=== PATIENT | male | born 1980 | race Caucasian/White ===

== ENCOUNTER 2016-08-03 17:52 | Emergency (ER) | payer OTHER ==
[2016-08-03] MEDS ORDERED: NS 0.9% 1000 ML* 1,000 ML IV ONE (18:17)
[2016-08-03] MEDS ORDERED: Ondansetron INJ* 2 MG/ML VIAL IV ONE (18:17)
[2016-08-03] MEDS ORDERED: HYDROmorphone* 1 MG/ML 1 ML SYR IV ONE ×3 (18:17→21:12)
[2016-08-03] MEDS ORDERED: Ketorolac INJ* 30 MG/ML 1 ML VIAL IV ONE (20:06)
--- NOTE | 2016-08-03 20:45 | RAD ---
Indication: Chest and shoulder injury. 2 views of the chest including dual energy PA views demonstrates no mediastinal shift. Heart is of normal size and configuration. Lung atkinson appear clear. No pneumothorax is noted. Again noted is a fracture of the midshaft right clavicle with overriding of the fracture fragments. IMPRESSION: No active cardiopulmonary disease is noted. Right clavicle fracture.
--- NOTE | 2016-08-03 20:46 | RAD ---
Indication: Right shoulder injury. 3 views of the right shoulder demonstrates fracture of the midshaft of the right clavicle with overriding of the fracture fragments. AC joint and glenohumeral joint are intact. IMPRESSION: Fracture midshaft right clavicle with overriding of the fracture fragments.
[2016-08-03] MEDS: oxyCODONE/Acetamin 5/325 MG* TAB PO ONE ×2 (20:50→20:51)
[2016-08-03] MEDS ORDERED: LORazepam INJ* 2 MG/ML 1 ML VIAL IV PUSH ONE (21:03)
[2016-08-03 21:20] LABS: Hematocrit 50 % (42-52); Mean Corpuscular HGB Conc 34 g/dl (31-36); Mean Corpuscular Hemoglobin 32 pg (27-31); Mean Corpuscular Volume 93 fL (80-94); Mean Platelet Volume 9 um3 (7.4-10.4); Red Blood Count 5.35 10^6/ul (4.0-5.4); Red Cell Distribution Width 13 % (10.5-15); White Blood Count 10.3 10^3/ul (3.5-10.8)
[2016-08-03 21:33] LABS: BUN/Creatinine Ratio 10.1 (8-20); Calcium 10.4 mg/dL (8.6-10.3); EGFR African American 89.5 (>60); EGFR Non-African American 69.6 (>60); Potassium 3.9 mmol/L (3.5-5.0)
[2016-08-03] MEDS ORDERED: Iohexol 300* (CONTRAST) 10 ML SDV IV ONE (21:36)
--- NOTE | 2016-08-03 22:16 | RAD ---
Indication: Right neck pain and clavicle injury. CT of the soft tissues of the neck was performed. Comminuted fracture of the midshaft right clavicle is noted. The great vessels are unremarkable. Localized hematoma is noted adjacent to the clavicle fracture. The sternocleidomastoid and neck demonstrates no evidence of abnormal masses. Submandibular glands are intact. Parotid glands are unremarkable. No evidence of hematoma is noted. The visualized cervical spine is otherwise unremarkable. No disc protrusion is noted. Mucous retention cyst is noted in the right maxillary sinus. IMPRESSION: No evidence of hematoma is noted along the right side of the neck. Mucous retention cyst is noted in the right maxillary sinus.
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
[2016-08-04 06:23] VITALS: BP 145/88
== END 2016-08-03 22:40 | disposition home or self-care (01) ==
LOC: ED 17:52
DX: S42.001A Fracture of unspecified part of right clavicle, initial encounter for closed fracture (principal); V86.59XA Driver of other special all-terrain or other off-road motor vehicle injured in nontraffic accident, initial encounter; Y93.9 Activity, unspecified; Y92.9 Unspecified place or not applicable
CPT/HCPCS: 36415; 70491; 71020; 80048; 85025; 96374; 96375; 99283; A9270-GY; J1170; J1885; J2060; J2405; Q9967

== ENCOUNTER 2016-08-20 08:48 | Day surgery (SDC) | payer OTHER ==
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
[~2016-08-20 08:48] MED LIST: Buffered Lidocaine 0.9% SYRIN* 5 ML/SYR SYRINGE INTRADERM ONE; Famotidine IV* 10 MG/ML 2 ML (20 mg) IV ONE; Midazolam* 1 MG/ML 5 ML VIAL (5 MG) ONE; fentaNYL* 50 MCG/ML 2 ML VIAL (100 MCG VIAL) ONE
[2016-08-20] MEDS ORDERED: Lidocaine 2% PF * 5 ML VIAL ONE (08:51)
[2016-08-20] MEDS ORDERED: Propofol* 10 MG/ML 20 ML BTL IV PUSH ONE (08:51)
[2016-08-20] MEDS ORDERED: Ketorolac INJ* 30 MG/ML 1 ML VIAL ONE (08:51)
[2016-08-20] MEDS ORDERED: Ondansetron INJ* 2 MG/ML VIAL ONE (08:51)
[2016-08-20] MEDS ORDERED: Dexamethasone IV* 4 MG/ML 1 ML (4 MG) ONE (08:51)
[2016-08-20] MEDS ORDERED: DiMENhydriNATE IV* 50 MG/ML VIAL IV PUSH PRN (09:05)
[2016-08-20] MEDS ORDERED: ceFAZolin 2 GM PREMIX(*) 0 GM/0 ML BAG IVPB ONE (09:32)
[2016-08-20] MEDS ORDERED: Buffered Lidocaine 0.9% SYRIN* 5 ML/SYR SYRINGE ONE (09:32)
[2016-08-20] MEDS ORDERED: Famotidine IV* 10 MG/ML 2 ML (20 mg) ONE (09:46)
[2016-08-20] MEDS ORDERED: Clindamycin 900 MG IVPREMIX(* 900 MG/50 ML SDV IV ONE (09:55)
[2016-08-20] MEDS ORDERED: Bupivacaine 0.5% W/EPI SDV* 30 ML VIAL ONE (10:10)
[2016-08-20] MEDS ORDERED: HYDROmorphone* 1 MG/ML 1 ML SYR ONE ×2 (10:37→12:11)
[2016-08-20] MEDS: HYDROmorphone* 1 MG/ML 1 ML SYR IV PRN ×3 (12:14→12:53)
[2016-08-20] MEDS ORDERED: oxyCODONE/Acetamin 5/325 MG* TAB ONE (12:54)
[2016-08-20] MEDS: oxyCODONE/Acetamin 5/325 MG* TAB PO PRN ×2 (12:57→13:24)
--- NOTE | 2016-08-20 13:24 | RAD ---
Indication: Right clavicle fracture status post internal fixation. 2 views of the right clavicle demonstrates internal fixation with a plate and screws of the clavicle. The fracture fragments appear in near anatomic alignment. IMPRESSION: INTERNAL FIXATION FRACTURE MID SHAFT CLAVICLE WITH FRACTURE FRAGMENTS IN NEAR ANATOMIC ALIGNMENT.
[2016-08-20 13:33] VITALS: BP 120/71
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
== END 2016-08-20 13:51 | disposition home or self-care (01) ==
LOC: OREAST 08:48
PROVIDERS: ATTEND Orthopaedic Surgery
PROC: 0PS904Z Reposition Right Clavicle with Internal Fixation Device, Open Approach (ICD-10-PCS; principal; 2016-08-20 10:00)
DX: S42.021A Displaced fracture of shaft of right clavicle, initial encounter for closed fracture (principal); V89.2XXA Person injured in unspecified motor-vehicle accident, traffic, initial encounter; Y92.9 Unspecified place or not applicable; F32.9 Major depressive disorder, single episode, unspecified; F41.9 Anxiety disorder, unspecified; M54.9 Dorsalgia, unspecified; G89.29 Other chronic pain; F17.200 Nicotine dependence, unspecified, uncomplicated
CPT/HCPCS: A9270-GY; J0690; J1100; J1170; J1885; J2250; J2405; J2704; J3010

== ENCOUNTER 2016-09-07 13:01 | Emergency (ER) | payer OTHER ==
[2016-09-07] MEDS ORDERED: Ketorolac INJ* 30 MG/ML 1 ML VIAL IV ONE (14:32)
[2016-09-07] MEDS ORDERED: NS 0.9% 1000 ML* 1,000 ML IV ONE (14:32)
[2016-09-07] MEDS ORDERED: diPHENhydraMINE IV* 50 MG/ML 1 ml VIAL (BENADRYL) IV ONE (14:32)
[2016-09-07] MEDS ORDERED: Metoclopramide IV* 5 MG/ML 2 ML VIAL IV ONE (14:32)
[2016-09-07] MEDS ORDERED: HYDROmorphone* 1 MG/ML 1 ML SYR IV ONE (16:21)
[2016-09-07 17:25] VITALS: BP 108/58
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
== END 2016-09-07 17:27 | disposition home or self-care (01) ==
LOC: ED 13:01
DX: G43.909 Migraine, unspecified, not intractable, without status migrainosus (principal); R11.2 Nausea with vomiting, unspecified
CPT/HCPCS: 96374; 96375; 99282; J1170; J1200; J1885

== ENCOUNTER 2016-12-17 02:35 | Emergency (ER) | payer OTHER ==
[2016-12-17] MEDS ORDERED: Metoclopramide IV* 5 MG/ML 2 ML VIAL IV SLOW PU ONE (03:37)
[2016-12-17] MEDS ORDERED: NS 0.9% 1000 ML* 2,000 ML IV ONE (03:37)
[2016-12-17] MEDS ORDERED: diPHENhydraMINE IV* 50 MG/ML 1 ml VIAL (BENADRYL) IV ONE (03:37)
[2016-12-17] MEDS ORDERED: Ketorolac INJ* 30 MG/ML 1 ML VIAL IV ONE (03:38)
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
[2016-12-17 06:32] VITALS: BP 114/64
== END 2016-12-17 05:55 | disposition home or self-care (01) ==
LOC: ED 02:35
DX: G43.909 Migraine, unspecified, not intractable, without status migrainosus (principal); R11.2 Nausea with vomiting, unspecified; R51 Headache; Z87.891 Personal history of nicotine dependence
CPT/HCPCS: 99282; J1200; J1885; J2765

== ENCOUNTER 2017-04-24 01:00 | Emergency (ER) | payer OTHER ==
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
[2017-04-24 02:42] VITALS: BP 113/76
== END 2017-04-24 02:40 | disposition home or self-care (01) ==
LOC: ED 01:00
DX: S40.861A Insect bite (nonvenomous) of right upper arm, initial encounter (principal); W57.XXXA Bitten or stung by nonvenomous insect and other nonvenomous arthropods, initial encounter; Y92.828 Other wilderness area as the place of occurrence of the external cause; Z87.891 Personal history of nicotine dependence; Z88.3 Allergy status to other anti-infective agents; Z88.8 Allergy status to other drugs, medicaments and biological substances
CPT/HCPCS: 99282

== ENCOUNTER 2017-07-23 11:27 | Emergency (ER) | payer OTHER ==
[2017-07-23] MEDS ORDERED: Diazepam SYRINGE* 5 MG/ML 2 ML SYRINGE (10 MG total) IV ONE (11:47)
[2017-07-23] MEDS ORDERED: Ketorolac INJ* 30 MG/ML 1 ML VIAL IV PUSH ONE (11:47)
[2017-07-23] MEDS ORDERED: Metoclopramide IV* 5 MG/ML 2 ML VIAL IV SLOW PU ONE (11:47)
[2017-07-23] MEDS ORDERED: diPHENhydraMINE IV* 50 MG/ML 1 ml VIAL (BENADRYL) IV ONE (11:47)
--- NOTE | 2017-07-23 12:11 | RAD ---
Indication: Headache. CT of the brain was performed without IV contrast. Ventricular structures are midline. No midline shift is noted. The extra-axial spaces are unremarkable. There is no evidence of intracranial mass or hemorrhage. No other high or low density lesions are identified. Mucous retention cyst is noted in the right maxillary sinus. IMPRESSION: There is no evidence of intracranial mass or hemorrhage.
[2017-07-23 16:39] VITALS: BP 128/82
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
== END 2017-07-23 16:34 | disposition home or self-care (01) ==
LOC: ED 11:27
DX: G43.909 Migraine, unspecified, not intractable, without status migrainosus (principal); F17.290 Nicotine dependence, other tobacco product, uncomplicated; Z88.3 Allergy status to other anti-infective agents; Z88.8 Allergy status to other drugs, medicaments and biological substances
CPT/HCPCS: 70450; 96374; 96375; 99283; J1200; J1885; J2765

== ENCOUNTER 2017-07-26 14:28 | Emergency (ER) | payer OTHER ==
[2017-07-26] MEDS ORDERED: Metoclopramide IV* 5 MG/ML 2 ML VIAL IV ONE (15:13)
[2017-07-26 15:38] LABS: ABS Basophils 0 10^3/ul (0-0.2); ABS Eosinophils 0 10^3/ul (0-0.6); ABS Monocytes 0.4 10^3/ul (0-0.8); ABS Neutrophils 10.2 10^3/ul (1.5-7.7); ABS Nucleated RBC 0 10^3/ul; Eosinophil % 0.2 % (0-6); Hematocrit 45 % (42-52); Hemoglobin 15.5 g/dl (14.0-18.0); Lymphocyte % 8.7 % (25-47); Mean Corpuscular HGB Conc 34 g/dl (31-36); Mean Corpuscular Hemoglobin 32 pg (27-31); Mean Corpuscular Volume 92 fL (80-94); Mean Platelet Volume 8.7 um3 (7.4-10.4); Nucleated Red Blood Cells % 0; Platelet Count 224 10^3/ul (150-450); Red Cell Distribution Width 13 % (10.5-15); White Blood Count 11.7 10^3/ul (3.5-10.8)
[2017-07-26] MEDS: NS 0.9% 1000 ML* 2,000 ML IV ONE (15:48)
[2017-07-26 15:55] LABS: EGFR Non-African American 83.6 (>60)
[2017-07-26] MEDS ORDERED: Butalb/Acetamin/Caff TAB* 1 TAB PO ONE (17:48)
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
[2017-07-26 17:58] VITALS: BP 104/48
== END 2017-07-26 18:51 | disposition home or self-care (01) ==
LOC: ED 14:28
DX: R51 Headache (principal); K52.9 Noninfective gastroenteritis and colitis, unspecified; Z88.1 Allergy status to other antibiotic agents; Z88.0 Allergy status to penicillin; Z88.8 Allergy status to other drugs, medicaments and biological substances; F90.9 Attention-deficit hyperactivity disorder, unspecified type; F41.9 Anxiety disorder, unspecified; F20.9 Schizophrenia, unspecified; F31.9 Bipolar disorder, unspecified; Z87.891 Personal history of nicotine dependence
CPT/HCPCS: 36415; 80053; 83690; 84484; 85025; 96361; 96374; 99283; A9270-GY; J2765

== ENCOUNTER 2018-07-05 11:37 | Emergency (ER) | payer OTHER ==
[2018-07-05] MEDS ORDERED: Metoclopramide IV* 5 MG/ML 2 ML VIAL IV ONE (12:01)
[2018-07-05] MEDS ORDERED: Ketorolac INJ* 30 MG/ML 1 ML VIAL IV ONE (12:01)
[2018-07-05] MEDS ORDERED: NS 0.9% 1000 ML** 1,000 ML IV ONE (12:01)
[2018-07-05] MEDS ORDERED: diPHENhydraMINE IV* 50 MG/ML 1 ml VIAL (BENADRYL) IV ONE (12:03)
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
[2018-07-05 12:59] VITALS: BP 114/55
[2018-07-05 13:00] LABS: ABS Eosinophils 0.1 10^3/ul (0-0.6); ABS Lymphocytes 1.5 10^3/ul (1.0-4.8); ABS Monocytes 0.5 10^3/ul (0-0.8); ABS Neutrophils 7.9 10^3/ul (1.5-7.7); Eosinophil % 1.3 %; Hematocrit 43 % (42-52); Hemoglobin 14.4 g/dL (14.0-18.0); Lymphocyte % 14.8 %; Mean Corpuscular HGB Conc 34 g/dL (31-36); Mean Corpuscular Hemoglobin 31 pg (27-31); Mean Corpuscular Volume 91 fL (80-94); Platelet Count 197 10^3/uL (150-450); Red Blood Count 4.72 10^6 /uL (4.18-5.48); Red Cell Distribution Width 13 % (10.5-15); White Blood Count 10.1 10^3/uL (3.5-10.8)
[2018-07-05 13:15] LABS: Albumin 4.3 g/dL (3.2-5.2); Albumin/Globulin Ratio 1.5 (1-3); BUN/Creatinine Ratio 15.4 (8-20); EGFR African American 97.2 (>60); EGFR Non-African American 80.4 (>60); Globulin 2.8 g/dL (2-4); Potassium 4.1 mmol/L (3.5-5.0); Total Bilirubin 0.4 mg/dL (0.2-1.0); Total Protein 7.1 g/dL (6.4-8.9)
[2018-07-05 14:07] LABS: Erythrocyte Sed Rate 6 mm/Hr (0-14)
== END 2018-07-05 13:05 | disposition home or self-care (01) ==
LOC: ED 11:37
DX: G43.909 Migraine, unspecified, not intractable, without status migrainosus (principal); Z87.891 Personal history of nicotine dependence; R11.0 Nausea; H53.149 Visual discomfort, unspecified
CPT/HCPCS: 36415; 80053; 82375; 85025; 85652; 96374; 96375; 99282; J1200; J1885; J2765

== ENCOUNTER 2018-09-03 21:13 | Emergency (ER) | payer OTHER ==
[2018-09-03] MEDS ORDERED: oxyCODONE TAB* 5 MG TAB PO ONE ×2 (21:40→22:59)
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
[2018-09-03 23:29] VITALS: BP 111/66
== END 2018-09-03 23:27 | disposition home or self-care (01) ==
LOC: ED 21:13
DX: M54.9 Dorsalgia, unspecified (principal); V86.59XA Driver of other special all-terrain or other off-road motor vehicle injured in nontraffic accident, initial encounter; Z88.0 Allergy status to penicillin; Z87.891 Personal history of nicotine dependence; Y92.9 Unspecified place or not applicable
CPT/HCPCS: 72070; 99283; A9270-GY

== ENCOUNTER 2018-11-18 13:26 | Emergency (ER) | payer OTHER ==
[2018-11-18] MEDS ORDERED: Ondansetron INJ* 2 MG/ML VIAL IV ONE (13:34)
[2018-11-18] MEDS ORDERED: NS 0.9% 1000 ML** 1,000 ML IV ONE (13:34)
[2018-11-18] MEDS ORDERED: Metoclopramide IV* 5 MG/ML 2 ML VIAL IV SLOW PU ONE (13:36)
[2018-11-18] MEDS ORDERED: ASA-APAP-CAFFEINE ES (NF) 1 TAB TAB PO ONE (13:45)
--- NOTE | 2018-11-18 13:45 | ED ---
Headache - HPI Summary HPI Summary: Pt is a 38 y/o M presenting to the ED with a chief complaint of a headache initially onset about an hour ago when he was fishing. He states he has hx of migraines, this one rated at 7/10. He reports N/V, photophobia, constipation, and some tingling in his L arm when he vomits. His migraines typically can come on either suddenly or gradually, can be accompanied by a myriad of sx, and is usually alleviated by Excedrin. Today, it came on rapidly which sometimes happens. He reports he gets tingling when he vomits. He tried to take OTC meds at home but had run out. He denies dizziness. - History Of Current Complaint Chief Complaint: EDHeadache Stated Complaint: HEADACHE W/TINGLING ARMS PER PT Time Seen by Provider: 11/18/18 13:34 Hx Obtained From: Patient Onset/Duration: Sudden Onset, Started hours ago, Still Present Initially Headache Was: Moderate Currently Pain Is: Moderate Timing: Constant, Hours Character: Migraine Aggravating Factor: Bright Lights Allevating Factors: Nothing Associated Signs And Symptoms: Nausea, Vomiting - Allergies/Home Medications Allergies/Adverse Reactions: Allergies Allergy/AdvReac Type Severity Reaction Status Date / Time amoxicillin [From Augmentin] Allergy Anaphylatic Verified 11/18/18 13:58 Shock clavulanic acid Allergy Anaphylatic Verified 11/18/18 13:58 [From Augmentin] Shock loratadine [From Claritin] Allergy Anaphylatic Verified 11/18/18 13:58 Shock Home Medications: Home Medications OLANzapine TAB* [Zyprexa 2.5 MG TAB*] 2.5 mg PO DAILY 11/18/18 [History Confirmed 11/18/18] PMH/Surg Hx/FS Hx/Imm Hx Previously Healthy: Yes Endocrine/Hematology History: Denies: Hx Anticoagulant Therapy, Other Endocrine/Hematological Disorders Cardiovascular History: Denies: Hx Myocardial Infarction, Other Cardiovascular Problems/Disorders Respiratory History: Denies: Hx Bronchopulmonary Dysplasia, Other Respiratory Problems/Disorders GI History: Denies: Other GI Disorders History: Denies: Other Problems/Disorders Musculoskeletal History: Reports: Hx Back Problems - thoracic Denies: Other Musculoskeletal History Sensory History: Denies: Hx Contacts or Glasses, Hx Hearing Aid, Other Sensory Impairments Opthamlomology History: Denies: Hx Contacts or Glasses, Other Sensory Impairments Neurological History: Reports: Hx Migraine Denies: Other Neuro Impairments/Disorders Psychiatric History: Reports: Hx Anxiety, Hx Attention Deficit Hyperactivity Disorder, Hx Depression, Hx Schizophrenia, Hx Bipolar Disorder, Hx Substance Abuse Denies: Hx Eating Disorder, Other Psychiatric Issues/Disorders - Cancer History Hx Chemotherapy: No - Surgical History Surgery Procedure, Year, and Place: wisdom teeth removed Hx Anesthesia Reactions: Yes - patient woke up mid dental work and was swinging to hit someone - Immunization History Date of Tetanus Vaccine: UP TO DATE Date of Influenza Vaccine: NONE Infectious Disease History: No Infectious Disease History: Denies: Traveled Outside the [place] in Last 30 Days - Family History Known Family History: Positive: Other - mother with arthritis, depression - Social History Alcohol Use: None Hx Substance Use: Yes Substance Use Type: Reports: Marijuana, Other Substance Use Comment - Amount & Last Used: weekly Hx Tobacco Use: Yes Smoking Status (MU): Former Smoker Type: Cigars Amount Used/How Often: 2-3 cigars a day smoked for 3-4 years Have You Smoked in the Last Year: Yes Review of Systems Positive: Photophobia Positive: Vomiting, Nausea Neurological: Negative - dizziness Positive: Headache, Paresthesia All Other Systems Reviewed And Are Negative: Yes Physical Exam - Summary Physical Exam Summary: Constitutional: Well-developed, Well-nourished, Alert. Mild distress secondary to pain. Skin: Warm, Dry HENT: Normocephalic; Atraumatic Eyes: Conjunctiva normal Neck: Musculoskeletal ROM normal neck. (-) JVD, (-) Nuchal rigidity Cardio: Rhythm regular, rate normal, Heart sounds normal; Intact distal pulses; Radial pulses are 2+ and symmetric. (-) Murmur Pulmonary/Chest wall: Effort normal. (-) Respiratory distress, (-) Wheezes, (-) Rales Abd: Soft. (-) Tenderness, (-) Distension, (-) Guarding, (-) Rebound Musculoskeletal: (-) Edema Lymph: (-) Cervical adenopathy Neuro: Alert, PERRL, Oriented x3, Strength normal, Cranial nerves II-XII are grossly intact. SILT, Strength 5/5 BUE and BLE, (-) Dysmetria, (-) Nystagmus, gait deferred Psych: Mood and affect Normal Triage Information Reviewed: Yes Vital Signs On Initial Exam: Initial Vitals Temp Pulse Resp BP Pulse Ox 97.0 F 62 18 120/72 100 11/18/18 13:28 11/18/18 13:28 11/18/18 13:28 11/18/18 13:28 11/18/18 13:28 Vital Signs Reviewed: Yes Diagnostics - Vital Signs Vital Signs Temp Pulse Resp BP Pulse Ox 11/18/18 13:28 97.0 F 62 18 120/72 100 - Laboratory Result Diagrams: 11/18/18 13:45 11/18/18 13:45 Lab Statement: Any lab studies that have been ordered have been reviewed, and results considered in the medical decision making process. Re-Evaluation - Re-Evaluation First Eval Change: Improved Comment: patient sleeping, NAD 2nd re-eval Re-Evaluation Time: 17:07 Change: Improved Comment: Pt is awake and ready to go. He feels much better. Headache Course/Dx - Course Course Of Treatment: 38-year-old male history migraines presents with headache. This is a patient who presents with headache. History of headaches of similar type. This is not the worst headache patient has had, and no additional features today to suggest need for further workup on a truly emergent basis ( imaging, LP, etc). - will give reglan, fioricet, NS - Diagnoses Provider Diagnoses: Migraine Discharge ED - Sign-Out/Discharge Documenting (check all that apply): Patient Departure Patient Received Moderate/Deep Sedation with Procedure: No - Discharge Plan Condition: Stable Disposition: HOME Patient Education Materials: Migraine Headache (ED) Referrals: Michael RENE,Jasiel Lawton [Primary Care Provider] - Additional Instructions: You were seen in the emergency department for a migraine. Please follow up with your primary care doctor in the next 2-3 days and return to the emergency department for worsening or concerning symptoms. It was a pleasure taking care of you today. - Billing Disposition and Condition Condition: STABLE Disposition: Home - Attestation Statements Document Initiated by Scribe: Yes Documenting Scribe: Vanna Reyes Provider For Whom Juni is Documenting (Include Credential): Edil Hough MD. Scribe Attestation: Vanna Ferrara, scribed for Edil Hough MD. on 11/18/18 at 1709. Scribe Documentation Reviewed: Yes Provider Attestation: The documentation as recorded by the scribe, Vanna Reyes accurately reflects the service I personally performed and the decisions made by me, Edil Hough MD. Status of Scribe Document: Viewed
[2018-11-18] MEDS ORDERED: Butalb/Acetamin/Caff TAB* 1 TAB PO ONE (13:46)
[2018-11-18 13:54] LABS: ABS Basophils 0.1 10^3/ul (0-0.2); ABS Eosinophils 0.2 10^3/ul (0-0.6); ABS Lymphocytes 2.9 10^3/ul (1.0-4.8); ABS Monocytes 0.4 10^3/ul (0-0.8); ABS Neutrophils 5.4 10^3/ul (1.5-7.7); Eosinophil % 2.3 %; Hematocrit 45 % (42-52); Hemoglobin 15.4 g/dL (14.0-18.0); Lymphocyte % 32.3 %; Mean Corpuscular HGB Conc 35 g/dL (31-36); Mean Corpuscular Hemoglobin 31 pg (27-31); Mean Corpuscular Volume 91 fL (80-94); Mean Platelet Volume 8.9 fL (7.4-10.4); Nucleated Red Blood Cells % 0.1; Platelet Count 217 10^3/uL (150-450); Red Blood Count 4.91 10^6 /uL (4.18-5.48); Red Cell Distribution Width 14 % (10-15); White Blood Count 9.1 10^3/uL (3.5-10.8)
[2018-11-18 13:59] LABS: INR 0.95 (0.82-1.09)
[2018-11-18 14:24] LABS: Albumin 4.6 g/dL (3.2-5.2); Calcium 9.5 mg/dL (8.6-10.3); Potassium 3.9 mmol/L (3.5-5.0); Total Bilirubin 0.5 mg/dL (0.2-1.0)
[2018-11-18 14:31] LABS: Albumin/Globulin Ratio 1.8 (1-3); BUN/Creatinine Ratio 10.1 (8-20); EGFR African American 91.6 (>60); EGFR Non-African American 75.7 (>60); Globulin 2.5 g/dL (2-4); Total Protein 7.1 g/dL (6.4-8.9)
[2018-11-18 17:36] VITALS: BP 127/76
== END 2018-11-18 17:34 | disposition home or self-care (01) ==
LOC: ED 13:26
DX: G43.909 Migraine, unspecified, not intractable, without status migrainosus (principal); R11.2 Nausea with vomiting, unspecified; H53.149 Visual discomfort, unspecified; M54.9 Dorsalgia, unspecified; Z87.891 Personal history of nicotine dependence; Z79.899 Other long term (current) drug therapy; R20.2 Paresthesia of skin; R20.0 Anesthesia of skin
CPT/HCPCS: 36415; 80053; 85025; 85610; 96361; 96374; 99282; A9270-GY; J2765

== ENCOUNTER → 2019-02-28 12:05 | Emergency (ER) | payer OTHER ==
[~2019-02-28 12:05] MED LIST changes: -Buffered Lidocaine 0.9% SYRIN* 5 ML/SYR SYRINGE INTRADERM ONE; -Famotidine IV* 10 MG/ML 2 ML (20 mg) IV ONE; +Ketorolac INJ* 30 MG/ML 1 ML VIAL IV PUSH ONE; +Lactated Ringers 1000 ML Bag* 1,000 ML IV SCH; +Metoclopramide IV* 5 MG/ML 2 ML VIAL IV ONE; -Midazolam* 1 MG/ML 5 ML VIAL (5 MG) ONE; +diPHENhydraMINE IV* 50 MG/ML 1 ml VIAL (BENADRYL) IV ONE; -fentaNYL* 50 MCG/ML 2 ML VIAL (100 MCG VIAL) ONE
--- NOTE | 2019-02-28 12:39 | ED ---
Headache - HPI Summary HPI Summary: 38-year-old male who endorses a significant medical history of chronic migraines presents to the emergency department today complaining of 3 days of a headache. He states he has an 8 out of 10 left orbital and temporal headache which is made worse with bright lights and loud noises. he states this is not the worst headache of his life and he denies fevers, neck pain, nuchal rigidity, rash. He endorses associated blurred vision, nausea and vomiting with this headache which began 3 days ago. He denies recent alcohol use but does state he smoked marijuana yesterday to try and alleviate his symptoms. Patient denies chest pain, abdominal pain, urination, rash, shortness of breath, joint pain, fever. Patient states he does not see a neurologist and that this is the first headache he has had "long time". Family history and social history noncontributory. - History Of Current Complaint Chief Complaint: EDHeadache Stated Complaint: HEADACHE Time Seen by Provider: 02/28/19 12:25 Hx Obtained From: Patient Onset/Duration: Gradual Onset Initially Headache Was: Moderate, Severe Currently Pain Is: Severe Timing: Constant Character: Throbbing Location of Headache: Temporal, Occipital Aggravating Factor: Bright Lights Allevating Factors: Rest Associated Signs And Symptoms: Nausea, Vomiting, Visual Changes - Allergies/Home Medications Allergies/Adverse Reactions: Allergies Allergy/AdvReac Type Severity Reaction Status Date / Time amoxicillin [From Augmentin] Allergy Anaphylatic Verified 11/18/18 13:58 Shock clavulanic acid Allergy Anaphylatic Verified 11/18/18 13:58 [From Augmentin] Shock loratadine [From Claritin] Allergy Anaphylatic Verified 11/18/18 13:58 Shock PMH/Surg Hx/FS Hx/Imm Hx Endocrine/Hematology History: Denies: Hx Anticoagulant Therapy, Other Endocrine/Hematological Disorders Cardiovascular History: Denies: Hx Myocardial Infarction, Other Cardiovascular Problems/Disorders Respiratory History: Denies: Hx Bronchopulmonary Dysplasia, Other Respiratory Problems/Disorders GI History: Denies: Other GI Disorders History: Denies: Other Problems/Disorders Musculoskeletal History: Reports: Hx Back Problems - thoracic Denies: Other Musculoskeletal History Sensory History: Denies: Hx Contacts or Glasses, Hx Hearing Aid, Other Sensory Impairments Opthamlomology History: Denies: Hx Contacts or Glasses, Other Sensory Impairments Neurological History: Reports: Hx Migraine Denies: Other Neuro Impairments/Disorders Psychiatric History: Reports: Hx Anxiety, Hx Attention Deficit Hyperactivity Disorder, Hx Depression, Hx Schizophrenia, Hx Bipolar Disorder, Hx Substance Abuse Denies: Hx Eating Disorder, Other Psychiatric Issues/Disorders - Cancer History Hx Chemotherapy: No - Surgical History Surgery Procedure, Year, and Place: wisdom teeth removed Hx Anesthesia Reactions: Yes - patient woke up mid dental work and was swinging to hit someone - Immunization History Date of Tetanus Vaccine: UP TO DATE Date of Influenza Vaccine: NONE Infectious Disease History: No Infectious Disease History: Denies: Traveled Outside the [place] in Last 30 Days - Family History Known Family History: Positive: Other - mother with arthritis, depression - Social History Alcohol Use: None Hx Substance Use: Yes Substance Use Type: Reports: Marijuana, Other Substance Use Comment - Amount & Last Used: weekly Hx Tobacco Use: Yes Smoking Status (MU): Former Smoker Type: Cigars Amount Used/How Often: 2-3 cigars a day smoked for 3-4 years Have You Smoked in the Last Year: Yes Review of Systems Constitutional: Negative Positive: Photophobia, Blurred Vision. Negative: Diplopia, Drainage, Erythema ENT: Negative Cardiovascular: Negative Respiratory: Negative Positive: Vomiting, Nausea. Negative: Abdominal Pain, Diarrhea Genitourinary: Negative Musculoskeletal: Negative Skin: Negative Positive: Headache. Negative: Weakness, Paresthesia, Numbness, Syncope Psychological: Normal All Other Systems Reviewed And Are Negative: Yes Physical Exam Triage Information Reviewed: Yes Vital Signs On Initial Exam: Initial Vitals Temp Pulse Resp BP Pulse Ox 96.2 F 66 20 134/86 100 02/28/19 12:17 02/28/19 12:17 02/28/19 12:17 02/28/19 12:17 02/28/19 12:17 Vital Signs Reviewed: Yes Appearance: Positive: Well-Appearing, Well-Nourished, Pain Distress Skin: Positive: Warm, Skin Color Reflects Adequate Perfusion Eyes: Positive: EOMI, IVAN ENT: Positive: Hearing grossly normal Neck: Positive: No Lymphadenopathy. Negative: Nuchal Rigidity Respiratory/Lung Sounds: Positive: Clear to Auscultation, Breath Sounds Present Cardiovascular: Positive: RRR, S1, S2 Abdomen Description: Positive: Nontender, Soft. Negative: Distended, Guarding Bowel Sounds: Positive: Present Musculoskeletal: Positive: Strength/ROM Intact Neurological: Positive: Sensory/Motor Intact, Alert, Oriented to Person Place, Time, Normal Gait, Speech Normal Psychiatric: Positive: Normal AVPU Assessment: Alert Procedures - Sedation Patient Received Moderate/Deep Sedation with Procedure: No Diagnostics - Vital Signs Vital Signs Temp Pulse Resp BP Pulse Ox 02/28/19 12:17 96.2 F 66 20 134/86 100 - Laboratory Result Diagrams: 02/28/19 12:41 02/28/19 12:41 Lab Statement: Any lab studies that have been ordered have been reviewed, and results considered in the medical decision making process. Headache Course/Dx - Course Course Of Treatment: Patient was evaluated in the emergency department for headache. Vital signs noted patient afebrile. Patient had no evidence or signs of meningitis or neurological deficits suggestive of subarachnoid hemorrhage. Negative Kernig's and Brudzinski's test. An IV was placed and the patient was given 1 L of lactated Ringer's, Toradol, Reglan, Benadryl for headache. Laboratory studies returned showing no significant abnormalities. No leukocytosis. After medication he reports 1/10 pain. Pt given prescirption for reglan to be taken with benadryl and ibuprofen twice daily for his headache. He is to f/u with his PCP in 3-5 days for neurology consult. - Diagnoses Differential Diagnosis/HQI/PQRI: Meningitis, Migraine, Subarachnoid Hemorrhage, Tension Headache, Viral Syndrome Provider Diagnoses: Headache Discharge ED - Sign-Out/Discharge Documenting (check all that apply): Patient Departure - Discharge Plan Condition: Stable Disposition: HOME Prescriptions: Metoclopramide TAB* [Reglan TAB*] 10 mg PO Q8H PRN #12 tab PRN Reason: Headache Patient Education Materials: Acute Headache (ED) Referrals: Michael RENE,Jasiel Lawton [Primary Care Provider] - 3 Days Additional Instructions: You were seen in the emergency department today for headache. Please take Reglan, Benadryl, ibuprofen for alleviation of your symptoms. Please follow-up with your primary care physician in 5 days for further evaluation and management of your symptoms. Please return to the emergency department immediately if you develop any new or worsening symptoms. Benadryl 50 mg twice daily Ibuprofen 800 mg every 8 hours Reglan 10 mg twice daily - Billing Disposition and Condition Condition: STABLE Disposition: Home - Attestation Statements Provider Attestation: I was available for consultation for this patient. I did not evaluate the patient or participate in any medical decision making or disposition decisions unless I am specifically named in the chart as having consulted on the patient. If I have consulted on the patient, please see my own ED note on the patient encounter. Edil Hough MD
[2019-02-28 12:53] LABS: ABS Basophils 0.1 10^3/ul (0-0.2); ABS Eosinophils 0.2 10^3/ul (0-0.6); ABS Lymphocytes 1.9 10^3/ul (1.0-4.8); ABS Monocytes 0.4 10^3/ul (0-0.8); ABS Neutrophils 4.9 10^3/ul (1.5-7.7); Eosinophil % 2.4 %; Hematocrit 44 % (42-52); Hemoglobin 15.3 g/dL (14.0-18.0); Lymphocyte % 25.8 %; Mean Corpuscular HGB Conc 35 g/dL (31-36); Mean Corpuscular Hemoglobin 32 pg (27-31); Mean Corpuscular Volume 91 fL (80-94); Mean Platelet Volume 8.7 fL (7.4-10.4); Platelet Count 224 10^3/uL (150-450); Red Blood Count 4.78 10^6 /uL (4.18-5.48); Red Cell Distribution Width 14 % (10-15); White Blood Count 7.5 10^3/uL (3.5-10.8)
[2019-02-28 13:05] LABS: Albumin 4.6 g/dL (3.2-5.2); Albumin/Globulin Ratio 1.4 (1-3); BUN/Creatinine Ratio 12.5 (8-20); Calcium 9.4 mg/dL (8.6-10.3); EGFR African American 96.7 (>60); EGFR Non-African American 79.9 (>60); Globulin 3.2 g/dL (2-4); Potassium 4.1 mmol/L (3.5-5.0); Total Bilirubin 0.6 mg/dL (0.2-1.0); Total Protein 7.8 g/dL (6.4-8.9)
[2019-02-28 14:12] VITALS: BP 105/64
== END | disposition home or self-care (01) ==
LOC: ED 12:05
DX: R51 Headache (principal); F41.9 Anxiety disorder, unspecified; F90.9 Attention-deficit hyperactivity disorder, unspecified type; F20.9 Schizophrenia, unspecified; F31.9 Bipolar disorder, unspecified; Z87.891 Personal history of nicotine dependence; Z88.0 Allergy status to penicillin; Z88.1 Allergy status to other antibiotic agents; Z88.5 Allergy status to narcotic agent
CPT/HCPCS: 36415; 80053; 85025; 96374; 96375; 99282; J1200; J1885; J2765